=== PATIENT | male | born 1935 | race Caucasian/White ===

== ENCOUNTER 2023-07-22 05:47 | Day surgery (SDC) | payer OTHER, SELFPAY ==
[2023-07-04 13:03] VITALS: BMI 36.0
[2023-07-04 13:30] LABS: % Immature Granulocytes 0.3 % (0-0.5); % Lymphocytes 24.6 % (20.5-51.1); % Monocytes 9.6 % (1.7-9.3); % Neutrophils 57.5 % (42.2-75.2); Absolute Basophils 0.1 10^3/uL (0-0.2); Absolute Eosinophils 0.5 10^3/uL (0-0.7); Absolute Lymphocytes 1.7 10^3/uL (1.2-3.4); Absolute Monocytes 0.7 10^3/uL (0.1-0.6); Absolute Neutrophils 3.9 10^3/uL (1.4-6.5); Hematocrit 36.4 % (39.0-52.0); Hemoglobin 11.1 g/dL (13.0-18.0); Mean Corp Hgb Conc. 30.5 g/dL (33.0-37.0); Mean Corpuscular Volume 78.6 fL (80.0-94.0); Mean Platelet Volume 8.5 fL (7.4-10.4); Nucleated Red Blood Cells % 0 % (-); Platelet Count 316 10^3/uL (130-400); Red Blood Cell Count 4.63 10^6/uL (4.70-6.10); Red Cell Dist. Width 20.5 % (11.5-14.5); White Blood Cell Count 6.8 10^3/uL (4.8-10.8)
[2023-07-04 13:40] LABS: INR 2.17; PT 24.1 Sec (11.4-14.6)
[2023-07-04 13:42] LABS: ALT (SGPT) 58 U/L (0-50); AST (SGOT) 71 U/L (17-59); Albumin 4.5 g/dl (3.5-5.0); Alkaline Phosphatase 179 U/L (38-126); Blood Urea Nitrogen 15 mg/dl (9-20); Calcium 9.5 mg/dl (8.4-10.2); Carbon Dioxide 29 mmol/L (22-30); Chloride 102 mmol/L (98-107); Estimated Creatinine Clearance 80 ml/min; Glucose 111 mg/dl (70-99); Potassium 4.2 mmol/L (3.5-5.1); Sodium 137 mmol/L (135-145); Total Bilirubin 0.9 mg/dl (0.2-1.3); Total Protein 7.3 g/dl (6.3-8.2); eGFR > 60.00
[2023-07-22] VITALS (10 sets, daily range): BP systolic 139–175; BP diastolic 69–98; BMI 35.6
[2023-07-22 07:01] LABS: INR 1.84; PT 21.5 Sec (11.4-14.6)
[2023-07-22 08:51] LABS: ACT-LR - POC 313 Seconds (116-155)
[2023-07-22 09:20] LABS: ACT-LR - POC 355 Seconds (116-155)
[2023-07-22 09:36] LABS: ACT-LR - POC 372 Seconds (116-155)
[2023-07-22 10:17] LABS: ACT-LR - POC 382 Seconds (116-155)
[2023-07-22 10:37] LABS: ACT-LR - POC 374 Seconds (116-155)
[2023-07-22 10:50] LABS: ACT-LR - POC 174 Seconds (116-155)
--- NOTE | 2023-07-22 11:58 | ITS.CL.ABL ---
Addendum entered and electronically signed by Solo Caicedo DO 07/22/23 12:31:
Addendum
Groin sites and abdomen remained soft and without swelling throughout the case and at case completion.
Original Note:
Senior Climate Advisor - Ablation
Ablation
Procedure Report:
Primary Professor Of Poultry Science: Winnie Gambino MD
Procedure Date: 07/22/2023
Patient History:
Patient is a pleasant 87-year-old male with a past medical history significant for persistent atrial fibrillation, hypertension, heart failure with preserved ejection fraction, prior stroke, vascular disease, aortic stenosis status post TAVR, right
bundle branch block, chronic anticoagulation with Coumadin.
See H&P for complete details.
Indication:
Symptomatic recurrent atrial fibrillation
Atrial arrhythmia/AT
Arrhythmia Specific History:
Prior Medical Therapies for Rate and Rhythm Control:
X Beta-theo
[ ] Calcium channel-theo
X Amiodarone
[ ] Dronederone
[ ] Sotalol
[ ] Flecainide
[ ] Dofetilide
[ ] Options limited by bradycardia
[ ] Options limited by comorbid renal disease
Prior Procedural Therapies for AF/AFL:
X Cardioversion
X Pulmonary Vein Isolation
[ ] Posterior Wall Isolation
[ ] Additional lines (Specify)
[ ] Surgical Du-MAZE or PVI (Specify)
Procedure Performed:
X AF ablation procedure (37131) -- includes LA/CS pacing, trans-septal, 3D mapping, + ICE
[ ] +IV drug (74170)
[ ] +Other Arrhythmia (53789)
X +Other AF Line/ablation (46629) -- Posterior wall
Risks and expected recovery has been explained in detail. Alternative options have been explored, and in a shared-decision making fashion we have decided that this was the most appropriate procedure.
Method
NPO status confirmed. Grounding pad applied. Defibrillator pads applied. Continuous surface ECG, pulse oximetry, and blood pressure were monitored. Procedure was performed under general anesthesia, with anesthesia services.
Both groins were clipped, prepped with Chloraprep, and draped in sterile fashion. Time out was called. Local anesthesia administered with bupivacaine. The right and left femoral veins were accessed for catheter placement, using ultrasound guidance,
micro-puncture needle/wire, and modified seldinger technique. 3 sheaths were placed. The following catheters were used:
[ ] GrownOut SE (D/F Curve) ablation catheter
X Viewflex 9Fr ICE catheter
X [employer] decapolar diagnostic catheter
[ ] CRD Hex 6Fr
[ ] Arctic Front Advance Cryoballoon ([ ]28mm[ ]23mm)
[ ] Achieve Advance mapping catheter ([ ]15mm[ ]20mm)
X FlexCath Contour 10 Fr with PulseSelect PFA Catheter
X Advisor HD Grid Mapping Catheter, SE
[ ] AcusWhooch AcuNav 8 Fr ICE catheter
[ ]Other: [ ]
Intracardiac ultrasound (ICE) was carefully advanced into the right atrium to guide sheath placement over a J-wire, catheter placement, guide trans-septal puncture, identify potential complications, identify anatomic structures and ensure proper
contact between ablation catheter and tissue.
Heparin was given prior to trans-septal puncture. Heparin was given to achieve and maintain a target ACT of 300-400 seconds throughout the procedure.
Right groin short 8 Bengali femoral venous sheath was exchanged over a wire with tip of the J-wire in the SVC. SL 1 was advanced to the SVC over the wire. There was inability to pass the BRK1 needle through the sheath due to tortuosity at groin
site. The system was exchanged over a wire and the short 8 fr femoral venous sheath was placed in the femoral vein. A non-selective venogram demonstrated appropriate anatomy without obstruction or contrast extravasation. A steerable 11.5 fr Agilis
sheath was exchanged over the wire for the 8 Fr short sheath and placed via femoral vein on right groin into the SVC over the wire. Trans-septal access was performed under ICE guidance. The trans-septal puncture was performed with a SafeSept wire
through a Brockenbrough needle assembly through the steerable sheath. The wire was visualized as it entered the LSPV and system advanced under ICE guidance and fluoroscopy into the LA. The Brockenbrough needle assembly, SafeSept wire and sheath
dilator were removed under negative pressure. LA pressure was measured and recorded. A ProTrack wire was advanced into the LA and the system was exchanged for the TechulonCath Contour steerable sheath.
ICE and 3D mapping was performed to identify relevant cardiac structures. A careful 3D map was created to assess for regions of low-voltage and abnormal electrogram signals using HD grid mapping catheter and PulseSelect catheter. Additional mapping
was performed as outlined below.
Prior to ablation, glycopyrrolate was provided. PulseSelect catheter was advanced over J-wire to the ostium of each vein. Patient was in SR during initial mapping. The left pulmonary veins demonstrated entrance and exit block with voltage near the
ostia. The right PVs also demonstrated entrance and exit block, however, voltage was noted within the vein more significant voltage at ostia, septal, and within alex concerning for reconnection. Pulmonary vein isolation was performed with ostial
and antral lesions in a circumferential manner to confirm WACA and anchor PW lesions. Additional ablation was performed anterior to the right PVs to ensure WACA and alex isolation. Contact was visualized via EAM, ICE, fluoroscopy, and EGM signals.
Posterior wall isolation was performed by anchoring the J-wire within the pulmonary vein and placing the PulseSelect catheter in contact with the posterior wall as visualized by aforementioned methods. Entrance and exit block was confirmed with
pacing. Following completion of ablation lesions, patient was noted to enter into an amorphous/shifting atrial tachycardia. PulseSelect was removed following ablation and HD grid was returned to LA for mapping. Attempt at LA entrainment
demonstrated long PPI TCL with changing activation on decapolar catheter. The system was removed from the LA and RA mapping was performed. Pacing from CTI did not demonstrate CTI dependence with long PPI-TCI. Due to amorphous nature, lack of
mappability, and changing activation patterns, sinus rhythm was restored with a 200J synchronized DCCV. As previously noted, entrance and exit block were confirmed for each vein and the posterior wall. Following ablation, rhythm induction was
attempted. No arrhythmia was induced with pacing.
Catheter and sheath were removed from the left atrium and post-ablation intracardiac echo evaluation was consistent with pre-ablation with no changes and no pericardial effusion and there is no left atrial thrombus or left ventricle thrombus seen.
Electrophysiology study was performed. Hemostasis was obtained with figure of 8 stitch for each groin and with manual pressure. Protamine was used for reversal.
Estimated Blood Loss
5-10 mL
Complications
None
Fluoroscopy: 11.2 minutes; 101.4 mGy; DAP 13.3
Baseline Intervals:
Rhythm: SR
AK: 234 ms
QRS: 164 ms
QT: 467 ms
QTc: 502 ms
A-A: 867 ms
R-R: 867 ms
Post-Procedure Intervals:
AK: 234 ms
QRS: 156 ms
QT: 494 ms
QTc: 514 ms
A-A: 922 ms
R-R: 922 ms
AVWB: 480 ms
AVNERP: 600/390 ms; AERP 600/240 ms
Recommendations
- Bedrest with straight-leg precautions as ordered
- Anticipate same day discharge if patient meeting clinical metrics
- Resume home medications as indicated
- Ok to resume anticoagulation tonight if patient and groin sites stable
- PPI daily for 30 days
- Plan for follow-up in office in 4-6 weeks
Solo Caicedo DO
Clinical Cardiac Water Filterer
cc: Winnie Gambino MD; Arleth Torrez, OS
[2023-07-22] MEDS: FLOMAX 0.400000000000000022 MG PO (12:41)
[2023-07-22 13:09] LABS: ACT-LR - POC > 397 Seconds (116-155)
--- NOTE | 2023-07-22 13:22 | PTCARENOTE ---
Pt unable to void, bladder scanned for > 530 ml. Pt asst OOB to attempt to void with permission from N.P. Pt voided scant amount blood tinged urine-15 ml, pt asst back to bed. Figure of 8 sutures intact. N.P. notified.
--- NOTE | 2023-07-22 14:43 | CM ---
Addendum entered by TRUE New 07/22/23 15:09:
VN able to accept.
Original Note:
Received consult for VN for beaulieu care.
Referral sent to [facility]; await response.
Goal is for home w/ [facility], if accepted.
--- NOTE | 2023-07-22 15:15 | VNURNOTE ---
Referral for [facility] placed in [facility] This author called and spoke with the patient over the phone. He is agreeable and understands he'll be contacted by in 1-2 days after discharge home. [facility] will assist in assessing, monitoring, and teaching
beaulieu cath care as well as cardiac post cath care. The patient confirmed with me that is has an outpatient urologist. [facility] Intake aware of referral.
--- NOTE | 2023-07-22 16:29 | W.PN.UPDATE ---
Update Note
Progress Note Update
87 yo WM s/p PVI (same day). He denies cp, sob, nora diet, b/l groins c/d/i soft, EKG SR 1deg AVB. He had urinary retention requiring st cath immediately post procedure for 900cc, about 3 hours after he was very uncomfortable and unable to void,
bladder scanned for >500cc. I s/w urology Dr. York via TT and he recommended placing beaulieu cath with his history of BPH. He was also given flomax 0.4mg. Beaulieu placed draining slightly pink tinged urine, most likely from trauma from first st
cath. I called his urologist Dr. Girish Briones office and made void trial apt on 08/04 at 9:30am. Case management set up VNA for him and leg bag teaching was done by RN. He will continue Coumadin tonight and check INR on Tuesday. He will be on Protonix
for 30 days. Activity restrictions reviewed. He will f/u Dr. Gambino in 2 mo. He is for d/c home after 4pm.
== END 2023-07-22 16:00 | disposition home or self-care (01) ==
LOC: CATH 05:47
PROVIDERS: ATTENDING PHYSICIAN Internal Medicine Cardiovascular Disease; FAMILY PHYSICIAN Internal Medicine; OTHER PHYSICIAN Internal Medicine Cardiovascular Disease
DX: I48.19 Other persistent atrial fibrillation (principal); I48.92 Unspecified atrial flutter; I25.10 Atherosclerotic heart disease of native coronary artery without angina pectoris; I11.0 Hypertensive heart disease with heart failure; I47.19 Other supraventricular tachycardia; E66.9 Obesity, unspecified; Z68.35 Body mass index [BMI] 35.0-35.9, adult; Z92.3 Personal history of irradiation; I25.2 Old myocardial infarction; I50.32 Chronic diastolic (congestive) heart failure; Z95.2 Presence of prosthetic heart valve; E78.5 Hyperlipidemia, unspecified; I45.10 Unspecified right bundle-branch block; Z85.46 Personal history of malignant neoplasm of prostate; G47.33 Obstructive sleep apnea (adult) (pediatric); N40.0 Benign prostatic hyperplasia without lower urinary tract symptoms; E03.9 Hypothyroidism, unspecified; M19.90 Unspecified osteoarthritis, unspecified site; G47.00 Insomnia, unspecified; D64.9 Anemia, unspecified; K21.9 Gastro-esophageal reflux disease without esophagitis; Z96.653 Presence of artificial knee joint, bilateral; E04.9 Nontoxic goiter, unspecified; Z90.49 Acquired absence of other specified parts of digestive tract; Z87.891 Personal history of nicotine dependence; Z79.899 Other long term (current) drug therapy; R42 Dizziness and giddiness; R00.2 Palpitations; R06.02 Shortness of breath
CPT/HCPCS: C1732; C1894; C1730; C1769; C1893; C1766; 36415; 75572; 76937; 80053; 83735; 85025; 85347; 85610; 86850; 86900; 86901; 93005; 93655; 93656; Q9967

== ENCOUNTER → 2024-02-06 09:28 | Day surgery (SDC) | payer OTHER, SELFPAY ==
[2024-02-06 10:33] LABS: INR 2.51; PT 27.1 Sec (11.4-14.6)
== END ==
LOC: CATH 09:28
PROVIDERS: Internal Medicine; ATTENDING PHYSICIAN Internal Medicine Cardiovascular Disease; FAMILY PHYSICIAN Internal Medicine; OTHER PHYSICIAN Internal Medicine Cardiovascular Disease
DX: I48.19 Other persistent atrial fibrillation (principal); I48.92 Unspecified atrial flutter; I47.19 Other supraventricular tachycardia; I25.10 Atherosclerotic heart disease of native coronary artery without angina pectoris; I25.2 Old myocardial infarction; I11.0 Hypertensive heart disease with heart failure; I50.32 Chronic diastolic (congestive) heart failure; E78.5 Hyperlipidemia, unspecified; I45.10 Unspecified right bundle-branch block; G47.33 Obstructive sleep apnea (adult) (pediatric); N40.0 Benign prostatic hyperplasia without lower urinary tract symptoms; K21.9 Gastro-esophageal reflux disease without esophagitis; Z85.46 Personal history of malignant neoplasm of prostate; Z87.891 Personal history of nicotine dependence; Z79.01 Long term (current) use of anticoagulants
CPT/HCPCS: 85610; 92960; 93005